=== PATIENT | female | born 1980 | race Two or more races ===

== ENCOUNTER → 2019-05-08 | Outpatient (CLI) | payer OTHER ==
[~2019-05-08] MED LIST: SYNTHROID50 MCG PO
== END | disposition home or self-care (01) ==
LOC: SONOGRAMA 10:49
DX: N63.31 Unspecified lump in axillary tail of the right breast (principal); N60.12 Diffuse cystic mastopathy of left breast; N60.11 Diffuse cystic mastopathy of right breast